=== PATIENT | female | born 1975 | race Caucasian/White ===

== ENCOUNTER 2017-04-16 13:58 | Outpatient (CLI) | payer OTHER | END 2017-04-16 14:00 | disposition home or self-care (01) | LOC: MAMO-SONO 13:58 | DX: Z12.31 Encounter for screening mammogram for malignant neoplasm of breast (principal); N64.89 Other specified disorders of breast ==

== ENCOUNTER 2018-12-17 10:26 | Outpatient (CLI) | payer OTHER | END 2018-12-17 10:34 | disposition home or self-care (01) | LOC: MAMO-SONO 10:26 | DX: Z12.31 Encounter for screening mammogram for malignant neoplasm of breast (principal); Z87.898 Personal history of other specified conditions; N60.11 Diffuse cystic mastopathy of right breast; N60.12 Diffuse cystic mastopathy of left breast ==

== ENCOUNTER 2019-10-10 11:19 | Outpatient (CLI) | payer OTHER | END 2019-10-10 11:31 | disposition home or self-care (01) | LOC: MAMO-SONO 11:19 | PROVIDERS: ATTEND Internal Medicine | DX: N63.10 Unspecified lump in the right breast, unspecified quadrant (principal); N63.20 Unspecified lump in the left breast, unspecified quadrant ==

== ENCOUNTER 2020-09-21 09:06 | Outpatient (CLI) | payer OTHER | END 2020-09-21 09:15 | disposition home or self-care (01) | LOC: SONOGRAMA 09:06 → MAMO-SONO 09:15 → SONOGRAMA 09:15 | PROVIDERS: ATTEND Obstetrics & Gynecology Gynecologic Oncology | DX: N80.1 Endometriosis of ovary (principal) ==

== ENCOUNTER 2021-01-07 08:00 | Outpatient (CLI) | payer OTHER | END 2021-01-07 08:05 | disposition home or self-care (01) | LOC: PPH VACUNA 08:00 | PROVIDERS: ATTEND Emergency Medicine Pediatric Emergency Medicine | DX: Z23 Encounter for immunization (principal) ==

== ENCOUNTER 2022-01-17 12:46 | Outpatient (CLI) | payer OTHER | END 2022-01-17 12:58 | disposition home or self-care (01) | LOC: SONOGRAMA 12:46 | PROVIDERS: ATTEND Obstetrics & Gynecology Gynecologic Oncology | DX: N85.00 Endometrial hyperplasia, unspecified (principal) ==

== ENCOUNTER 2022-08-29 14:19 | Outpatient (CLI) | payer OTHER | END 2022-08-29 14:44 | disposition home or self-care (01) | LOC: SONOGRAMA 14:19 | PROVIDERS: ATTEND Pediatrics | DX: N92.1 Excessive and frequent menstruation with irregular cycle (principal) ==

== ENCOUNTER 2023-02-27 10:03 | Outpatient (CLI) | payer OTHER | END 2023-02-27 10:36 | disposition home or self-care (01) | LOC: TOM 10:03 | PROVIDERS: ATTEND Pediatrics | DX: N28.89 Other specified disorders of kidney and ureter (principal) ==